=== PATIENT | male | born 1980 | race Two or more races ===

== ENCOUNTER 2017-10-22 17:33 | Emergency (ER) | payer MEDICAID ==
[~2017-10-22] VITALS: Ht 175.3 cm; Wt 81.6 kg
[2017-10-22 18:17] VITALS: BP 130/70
[2017-10-22] MEDS ORDERED: Lidocaine 1% MPF 10mg/ml 5ml INJ ONE (18:30)
[2017-10-22] MEDS ORDERED: Bacitracin Oint UD TOPIC ONE (18:30)
[2017-10-22] MEDS ORDERED: Norco 5mg/325mg tab ORAL ONE (18:30)
[2017-10-22] MEDS ORDERED: BACTRIM DS TAB1 EAC1 ORAL (19:41)
[2017-10-22] MEDS ORDERED: NORCO 5-325 TA1 EAC1 ORAL (19:41)
[2017-10-22] MEDS ORDERED: CEPHALEXIN500 MG ORAL (19:41)
[2017-10-22 19:58] VITALS: BP 130/70
--- NOTE | 2017-10-22 23:04 | Emergency Room Report ---
History of Present Illness General Chief Complaint: Skin Rash/Abscess Source: Patient Present Illness [facility] The patient is a 37-year-old male presenting for possible foot infection. He states that he noticed pain at the bottom of the left foot one week prior. He was seen at another facility and given a prescription for Bactrim. He states x- ray was done and did not show anything. He denies any known injury to the area and denies stepping on any sharp objects. Pain is a 9/10 dull ache to the bottom of the foot and does not radiate. Worse with walking. He denies any fever or chills. He denies any other symptoms including nausea, vomiting, calf pain, numbness or tingling Denies history of diabetes Allergies: Coded Allergies: No Known Allergies (Unverified , 10/22/17) Patient History Past Medical History: see triage record Pertinent Family History: none Reviewed Nursing Documentation: PMH: Agreed, PSxH: Agreed Nursing Documentation-PMH Hx Asthma: Yes Review of Systems All Other Systems: negative except mentioned in HPI Physical Exam Vital Signs Date Time Temp Pulse Resp B/P (MAP) Pulse Ox O2 Delivery O2 Flow Rate FiO2 10/22/17 18:07 98.4 84 16 130/70 98 Room Air Sp02 EP Interpretation: reviewed, normal General Appearance: no apparent distress, alert, GCS 15, non-toxic Head: normocephalic, atraumatic Eyes: bilateral eye normal inspection, bilateral eye PERRL Musculoskeletal: back normal, normal range of motion, tender - L plantar surface of foot over abscess Neurologic: alert, oriented x3, responsive, motor strength/tone normal, sensory intact, speech normal Psychiatric: judgement/insight normal, memory normal, mood/affect normal, no suicidal/homicidal ideation Skin: rash - abscess of the plantar surface of mid foot. Fluctuant and tender Lymphatic: no adenopathy Procedures Incision and Drainage Incision and Drainage : Consent: Verbal Site: L foot Blade Size: 11 I & D Procedure: betadine prep, sterile drapes applied Wound Location: lower extremity Wound's Depth, Shape: superficial, linear Wound Length (cm): 2 Wound Explored: clean Irrigated w/ Saline (ccs): 50 Anesthesia: 1% Lidocaine Volume Anesthetic (ccs): 4 Splint Applied?: No Sling Applied?: No Patient Tolerated: Well Complications: None Medical Decision Making PA Attestation Dr. Ventura is my supervising physician. Patient management was discussed with my supervising physician Diagnostic Impression: Primary Impression: Abscess ER Course The patient is a 37-year-old male presenting for possible foot infection. Differential diagnoses considered but not limited to: abscess, cellulitis, insect bite, among others PE: Afebrile. NAD Left foot: Plantar surface has a fluctuant, tender, erythematous abscess. There is purulence visible under the skin. Sensation is intact to light touch. Betadine prep was used to clean the skin and surrounding area. One percent lidocaine without epinephrine was used to anesthetize the are of planned incision. A #11 blade was used to make an incision in the central area of fluctuance approximately 1/3 the size of the diameter of the abscess. Once the incision was made, purulent material was expressed with blood. Blunt dissection was then used to release loculations and expressed more purulent material. Once only blood appeard to be expressed from the incision, normal saline was used to irrigate the inside of the abscess. The wound was then cleaned and sterile dressing applied. The patient be discharged with prescription for Keflex and Bactrim. He will follow up with his primary doctor. He is given indications to return Last Vital Signs Date Time Temp Pulse Resp B/P (MAP) Pulse Ox O2 Delivery O2 Flow Rate FiO2 10/22/17 19:41 98.4 10/22/17 18:17 16 130/70 98 Room Air 10/22/17 18:07 84 Status: improved Disposition: HOME, SELF-CARE Condition: Improved Scripts Trimethoprim/Sulfamethoxazole 160/800* (BACTRIM DS TABLET*) 1 Each Tablet 1 TAB ORAL TWICE A DAY, #14 TAB Prov: TERZIAN,NOEMY P.A. 10/22/17 Cephalexin* (KEFLEX*) 500 Mg Capsule 500 MG ORAL EVERY 12 HOURS, #14 CAP 0 Refills Prov: TERZIAN,NOEMY P.A. 10/22/17 Hydrocodone Bit/Acetaminophen 5-325* (NORCO 5-325 TABLET*) 1 Each Tablet 1 TAB ORAL Q6HR Y for For Pain, #10 TAB Prov: TERZIAN,NOEMY P.A. 10/22/17 Patient Instructions: Abscess Additional Instructions: I discussed my findings with the patient. All questions and concerns have been answered. Treatment and medication compliance have been addressed. I advised the patient that they need to follow up with primary doctor within 3 days. Return to ED if symptoms worsen, new symptoms arise, or if needed for any reason. Patient verbalized understanding of discharge instructions. NOEMY MCGINNIS Oct 22, 2017 23:04
== END 2017-10-22 19:58 | disposition home or self-care (01) ==
LOC: EMR 18:11
DX: L02.612 Cutaneous abscess of left foot (principal); J45.909 Unspecified asthma, uncomplicated
CPT/HCPCS: 10060; 99284

== ENCOUNTER 2019-02-22 09:44 | Emergency (ER) | payer MEDICAID ==
[~2019-02-22] VITALS: Ht 177.8 cm; Wt 107.5 kg
[~2019-02-22 09:44] MED LIST: BACTRIM DS TAB1 EAC1 ORAL; CEPHALEXIN500 MG ORAL; NORCO 5-325 TA1 EAC1 ORAL
--- NOTE | 2019-02-22 09:58 | NUR ---
ED Nurse Note:pt. came with lef second toe injury and pain, ambulatory seen by ER
[2019-02-22] MEDS ORDERED: VENTOLIN HFA18 GM INH (09:59)
--- NOTE | 2019-02-22 10:17 | Emergency Room Report ---
History of Present Illness General Chief Complaint: Lower Extremity Injury Source: Patient Present Illness HPI Patient reports that yesterday while moving a refrigerator The ezio landed on his left second toe He has localized pain to that area Denies any ankle pain denies any pelvic pain Denies any other trauma Pain is localized to that region 7 out of 10 Allergies: Coded Allergies: No Known Allergies (Unverified , 10/22/17) Patient History Past Medical History: see triage record Pertinent Family History: none Reviewed Nursing Documentation: PMH: Agreed; PSxH: Agreed Nursing Documentation-PMH Past Medical History: No History, Except For Hx Asthma: Yes Review of Systems All Other Systems: negative except mentioned in HPI Physical Exam Vital Signs Date Time Temp Pulse Resp B/P (MAP) Pulse Ox O2 Delivery O2 Flow Rate FiO2 02/22/19 09:50 97.5 63 17 131/82 99 Room Air Sp02 EP Interpretation: reviewed, normal General Appearance: well appearing, no apparent distress Head: normocephalic, atraumatic Eyes: bilateral eye PERRL, bilateral eye EOMI ENT: normal pharynx, no angioedema Neck: supple Respiratory: no respiratory distress, no retraction, no accessory muscle use Cardiovascular #1: regular rate, rhythm Musculoskeletal: other - Ecchymosis and bruising to the left second toe the nailbed does not appear involved Neurologic: alert, oriented x3, responsive Skin: other - As above Lymphatic: no adenopathy Procedures Splinting Splinting : Consent: Verbal Location: Left foot Pre-Made Type: velcro Splint: poserior short Pre-Proc Neuro Vasc Exam: normal Post-Proc Neuro Vasc Exam: normal Patient Tolerated: Well Complications: None Progress Patient has a manoj taping performed for stabilization, provided with post op shoe and crutches Medical Decision Making Diagnostic Impression: Primary Impression: Toe fracture ER Course Given the patient's history and exam along with the presentation x-ray imaging is obtained There is evidence of a distal toe fracture on the left side Patient provided with manoj taping and stabilization Nonweightbearing provided outpatient follow-up The nailbed does not appear involved and patient stable for close follow-up Other X-Ray Diagnostic Results Other X-Ray Diagnostic Results : X-Ray ordered: Left foot # of Views/Limited Vs Complete: 3 View Indication: Pain EP Interpretation: Yes Interpretation: no dislocation, no soft tissue swelling, other - Distal metatarsal fracture Impression: Other - Distal second phalanx fracture Electronically Signed by: Yehuda Montes DO Last Vital Signs Date Time Temp Pulse Resp B/P (MAP) Pulse Ox O2 Delivery O2 Flow Rate FiO2 02/22/19 09:50 97.5 63 17 131/82 99 Room Air Status: improved Disposition: HOME, SELF-CARE Condition: Improved Scripts Ibuprofen* (MOTRIN*) 600 Mg Tablet 600 MG ORAL Q8H PRN for For Pain, #20 TAB 0 Refills Prov: Yehuda Montes DO 02/22/19 Referrals: FABIO MASTERSON,REFERRING (PCP) Additional Instructions: Patient is provided with the discharge instructions notified to follow up with primary doctor in the next 2-3 days otherwise return to the er with any worsening symptoms. Please note that this report is being documented using [employer] technology. This can lead to erroneous entry secondary to incorrect interpretation by the dictating instrument. Yehuda Montes DO Feb 22, 2019 10:17
[2019-02-22] MEDS ORDERED: IBUPROFEN600 MG ORAL (10:55)
--- NOTE | 2019-02-22 11:30 | Diagnostic Imaging Report ---
ADDENDUM - Added by Donnell Michael MD on 02/22/2019 11:56 AM (-07:00) Further clinical history was provided that patient has focal pain along the distal second toe. On further review, there is a lucency within the distal tuft of the second toe distal phalanx, suggestive of a nondisplaced fracture. EXAM: XR Left Foot Complete, 3 or More Views CLINICAL HISTORY: TRAUMA TECHNIQUE: Frontal, lateral and oblique views of the left foot. COMPARISON: No relevant prior studies available. FINDINGS: Bones/joints: Mild hallux valgus. No visible displaced fracture. No dislocation. No osseous erosions. Visualized joint spaces appear unremarkable. Soft tissues: Unremarkable. No radiopaque foreign body. IMPRESSION: 1. No radiographic evidence of displaced fracture or dislocation. 2. Mild hallux valgus deformity. If there is continued clinical concern, cross-sectional imaging with CT or MRI may be considered. <MYCVCSECTION> Critical Value Communications 02/22/19 11:[address] [facility] Yehuda Montes MD on 02/22 11:54 (-07: 00) 02/22/19 12:08 Verify Receipt Verified receipt with Sheela CASON, given to Yehuda Montes MD on 02/22 12:06 (-07:00)
[2019-02-22 11:31] VITALS: BP 131/82
--- NOTE | 2019-02-22 11:32 | NUR ---
ER DISCHARGE NOTE:second toe was body taped and cast shoe with cratchies provided Patient is cleared to be discharged per ERMD, pt is aox4, on room air, with stable vital signs. pt was given dc and prescription instructions, pt was able to verbalize understanding. pt is able to ambulate with steady gait. pt took all belongings.
== END 2019-02-22 11:10 | disposition home or self-care (01) ==
LOC: EMR 10:03
DX: S92.532A Displaced fracture of distal phalanx of left lesser toe(s), initial encounter for closed fracture (principal); W22.8XXA Striking against or struck by other objects, initial encounter; Y92.9 Unspecified place or not applicable
CPT/HCPCS: 29515; 99283